=== PATIENT | female | born 1990 | race Asian ===

== ENCOUNTER 2021-09-20 18:30 | Emergency (ER) | payer OTHER, SELFPAY ==
[2021-09-20 18:42] VITALS: BP 129/96; PULSE 84; RESP 16; TEMP 36.8; O2SAT 100
--- NOTE | 2021-09-20 19:00 | ED.BACK ---
HPI - Back Pain/Injury General Chief Complaint: Back Pain/Injury Stated Complaint: lower back pain Time Seen by Provider: 09/20/21 19:00 Source: patient Mode of arrival: ambulatory Limitations: no limitations History of Present Illness HPI Narrative: 31-year-old female presented for complaint of pain across lower back for 3 days. She states she was scrubbing floors at the onset, and then the next evening she twisted while lifting her child onto the bed and noticed pain at that time. She denies numbness, tingling, weakness of the lower extremities, denies any loss of bowel bladder or saddle paresthesia. She has been taking naproxen and ibuprofen as needed. Endorses a history of 3 bulging disks. Related Data Allergies Allergy/AdvReac Type Severity Reaction Status Date / Time doxycycline Allergy Unknown FACIAL Verified 09/20/21 18:45 SWELLING AND SOB Review of Systems Review of Systems: CONSTITUTIONAL: Denies body aches, fever, chills EYES: Denies visual changes ENT: Denies rhinorrhea, congestion CARDIOVASCULAR: Denies chest pain, palpitations, or edema. RESPIRATORY: Denies cough or dyspnea. GASTROINTESTINAL: Denies abdominal pain, nausea, vomiting, or diarrhea. SKIN: Denies rash, itching, or wounds. MUSCULOSKELETAL: Reports back pain NEUROLOGIC: Denies headache, numbness, tingling, or weakness. PSYCH: Denies depression or anxiety. All systems reviewed & are unremarkable except as noted in HPI and below PMFSH Comments At time of signature, I have reviewed and agree with nursing past medical, surgical, social and family history unless otherwise noted. Please see nursing chart for further information. There is no relevant family history pertinent to the presenting complaint Exam Narrative: GENERAL: Well-appearing HEAD: Normocephalic, atraumatic. EYES: conjunctivae clear NECK: Supple. CHEST: Speaks in full sentences. No respiratory distress. HEART: Regular rate and rhythm. Normal and equal peripheral pulses. EXTREMITIES: BLEs have normal strength and sensation, normal range of motion. No vertebral point tenderness. Pt is tender to palpation of bilateral para spinal lumbar area. No open wounds, alignment normal, pulse palpable and equal bilaterally, skin warm, dry, pink. Capillary refill less than 3 seconds. Gait steady. SKIN: Warm, dry, no rash. NEURO: Alert and oriented x3. PSYCH: Normal mood and affect Course Course Emergency Course: Patient is aware of diagnosis, understands and agrees to treatment plan. Anticipatory guidance given. Patient agrees to follow-up as directed and is aware of reasons to seek care at the emergency department. Portions of this record may have been created with voice recognition software Level of Care: Express Care Visit Vital Signs Vital signs: Vital Signs Temperature 98.3 F 09/20/21 18:42 Pulse Rate 84 09/20/21 18:42 Respiratory Rate 16 09/20/21 18:42 Blood Pressure 129/96 H 09/20/21 18:42 Pulse Oximetry 100 09/20/21 18:42 Temperature 98.3 F 09/20/21 18:42 Pulse Rate 84 09/20/21 18:42 Respiratory Rate 16 09/20/21 18:42 Blood Pressure 129/96 H 09/20/21 18:42 Pulse Oximetry 100 09/20/21 18:42 Reviewed MDM - Back Pain/Injury Differential Diagnosis Differential diagnosis: Likely lumbar radiculopathy, strain of lumbar region and discitis Discharge Plan Discharge Clinical Impression: Strain of lumbar region Qualifiers: Encounter type: initial encounter Qualified Code(s): S39.012A - Strain of muscle, fascia and tendon of lower back, initial encounter Patient Disposition: Home, Self-Care Condition: Stable Instructions: Low Back Strain (ED) Additional Instructions: Rest. Avoid pushing, pulling, lifting or anything that worsens the symptoms Tylenol 1000mg every 8 hours as needed Take the steroid as directed Muscle relaxer as needed as directed, can cause drowsiness and do not drive until you know how it makes you feel Al
== END 2021-09-20 19:12 | disposition home or self-care (01) ==
PROVIDERS: Emergency Provider Nurse Practitioner Family
DX: S39.012A Strain of muscle, fascia and tendon of lower back, initial encounter (principal); X50.9XXA Other and unspecified overexertion or strenuous movements or postures, initial encounter
CPT/HCPCS: 99213; G0463

== ENCOUNTER 2022-02-05 14:39 | Emergency (ER) | payer OTHER, SELFPAY ==
--- NOTE | 2022-02-05 14:46 | ED.FEMALEGU ---
HPI - Female Genitourinary General Chief complaint: Urogenital-Female Stated complaint: Vaginal Problems Time Seen by Provider: 02/05/22 14:50 Source: patient, RN notes reviewed and old records reviewed Mode of arrival: ambulatory Limitations: no limitations History of Present Illness HPI Narrative: 32-year-old female presents to the ED with complaints of 4 days of vaginal itching and discharge. States it feels like her normal yeast infection. Spent 3 hours in the swimsuit driving. Denies any concern for STDs. Denies any urinary symptoms. Denies fevers. No abdominal pain. Related Data Home Medications Medication Instructions Recorded Confirmed etonogestrel 68 mg subdermal 1 implant subdermal ONCE 02/05/22 02/05/22 implant (Nexplanon) Allergies Allergy/AdvReac Type Severity Reaction Status Date / Time doxycycline Allergy Unknown FACIAL Verified 02/05/22 14:53 SWELLING AND SOB Review of Systems Review of Systems: All systems reviewed & are unremarkable except as noted in HPI and below Constitutional: Constitutional: Reports no additional constitutional complaints, Denies chills and Denies fatigue Eyes: Eyes: Reports no additional eye complaints ENT: Reports system reviewed and no additional complaints, except as documented Cardiovascular: Cardiovascular: Reports no additional cardiovascular complaints Respiratory: Respiratory: Reports no additional respiratory complaints Gastrointestinal: Gastrointestinal: Reports no additional gastrointestinal complaints, Denies abdominal pain, Denies diarrhea, Denies nausea and Denies vomiting Genitourinary: Genitourinary: Reports as per HPI, Denies hematuria, Denies nocturia, Denies dysuria, Denies flank pain, Denies urinary urgency, Reports vaginal discharge (With itching), Denies vaginal dryness, Denies vaginal odor and Reports vaginal pruritus Musculoskeletal: Musculoskeletal: Reports no additional musculoskeletal complaints and Denies back pain Integumentary/Breasts: Skin/Breast: Reports system reviewed and no additional complaints, except as docu Neurologic: Reports system reviewed and no additional complaints, except as documented Psychiatric: Psychiatric: Reports no additional psychiatric complaints Endocrine: Endocrine: Denies fatigue Allergic/Immunologic: Allergic/Immunologic: Reports no additional allergic/immunologic complaints PMFSH Past Medical History Medical History (Updated 02/05/22 @ 19:47 by Faiza Zeng APRN) Patient denies medical problems Surgical History Surgical History (Updated 02/05/22 @ 19:47 by Faiza A. Topper, [employer]) No pertinent past surgical history Comments At the time of my signature, I reviewed and agree with the nursing past medical, surgical, social, and family history. There is no relevant family history pertinent to the patient complaint. Exam Const: General: healthy appearing, no acute distress, alert and well nourished Nutritional Appearance: well nourished Orientation/consciousness: patient oriented x3 Limitations: no limitations HENMT: Head: normal to inspection Eyes: Conjunctivae: conjunctivae normal Pupils: Equal, round and reactive pupils present Neck: Neck: normal visual inspection, no lymphadenopathy and no meningeal signs Chest: Chest palpation & inspection: normal inspection of the chest and abnormal inspection of the chest Resp: Effort & Inspection: normal respiratory effort Auscultation: clear to auscultation bilaterally Cardio: Rate: regular rate Rhythm: regular rhythm GI: GI Palp: Yes Soft to palpation and No Tenderness to palpation present (GI) : General: Yes no CVA tenderness Other: Patient reports that this feels like a normal yeast infection, history of chronic yeast infections. Has declined exam at this time we will follow-up with primary care provider Back/Spine/Pelvis: Back: no CVA tenderness Skin: General skin exam: normal color Rashes: no rashes Wounds:
[2022-02-05 14:48] VITALS: BP 139/87; PULSE 108; RESP 16; TEMP 37.1; O2SAT 99
== END 2022-02-05 15:01 | disposition home or self-care (01) ==
PROVIDERS: Emergency Provider Nurse Practitioner
DX: B37.31 Acute candidiasis of vulva and vagina (principal)
CPT/HCPCS: 99213; G0463

== ENCOUNTER 2022-10-22 17:56 | Emergency (ER) | payer OTHER, SELFPAY ==
--- NOTE | ~2022-10-22 | XR_ITS ---
EXAM: XR shoulder RT min 2V DATE: 10/22/2022 18:42 HISTORY: PT [facility], PAIN/LIMITED ROM OF RIGHT SHOULDER . COMPARISON: None available. FINDINGS: Normal mineralization. No fracture or dislocation. No lytic or blastic lesion. Joint space s are maintained. No erosion or periosteal change. Soft tissues within normal limits. IMPRESSION: No acute osseous finding in the right shoulder. Reviewed, dictated and finalized at location K.
[2022-10-22 18:23] VITALS: BP 154/83; PULSE 93; RESP 16; TEMP 36.9; O2SAT 100
--- NOTE | 2022-10-22 19:05 | ED.EXTPRO ---
HPI - Extremity Problem General Chief complaint: Extremity Problem,Nontraumatic Stated complaint: Right Arm Pain Time Seen by Provider: 10/22/22 19:05 Source: patient Mode of arrival: ambulatory Limitations: no limitations History of Present Illness HPI Narrative: 32-year-old female presented for complaint of right shoulder pain worsening since yesterday. She reports decreased range of motion at the shoulder due to the pain and the right hand has intermittent tingling. Has taken Tylenol for pain. She denies known injury but states she recently returned to work after several months off, and thinks she over used the shoulder. Related Data Allergies Allergy/AdvReac Type Severity Reaction Status Date / Time doxycycline Allergy Unknown FACIAL Verified 10/22/22 18:37 SWELLING AND SOB Review of Systems Review of Systems: CONSTITUTIONAL: Denies body aches, fever, chills EYES: Denies visual changes ENT: Denies rhinorrhea, congestion CARDIOVASCULAR: Denies chest pain, palpitations, or edema. RESPIRATORY: Denies cough or dyspnea. GASTROINTESTINAL: Denies abdominal pain, nausea, vomiting, or diarrhea. SKIN: Denies rash, itching, or wounds. MUSCULOSKELETAL: Denies neck or back pain Reports right shoulder pain NEUROLOGIC: Denies headache, numbness, tingling, or weakness. All systems reviewed & are unremarkable except as noted in HPI and below PMFSH Past Medical History Medical History Patient denies medical problems Surgical History Surgical History No pertinent past surgical history Comments At time of signature, I have reviewed and agree with nursing past medical, surgical, social and family history unless otherwise noted. Please see nursing chart for further information. There is no relevant family history pertinent to the presenting complaint Exam Narrative: GENERAL: Well-appearing HEAD: Normocephalic, atraumatic. EYES: PERRLA, conjunctivae clear NECK: Supple. No vpt CHEST: Speaks in full sentences. No respiratory distress. HEART: Regular rate and rhythm. Normal and equal peripheral pulses. EXTREMITIES: RUE has normal strength and sensation, limited range of motion at shoulder all directions; endorses pain with movement. No ecchymosis, No point tenderness. No open wounds, or obvious deformity; alignment normal, pulse palpable and equal bilaterally, skin warm, dry, pink. Capillary refill less than 3 seconds. SKIN: Warm, dry, no rash. NEURO: Alert and oriented x3. Course Course Emergency Course: Patient is aware of diagnosis, understands and agrees to treatment plan. Anticipatory guidance given. Patient agrees to follow-up as directed and is aware of reasons to seek care at the emergency department. Portions of this record may have been created with voice recognition software Level of Care: Express Care Visit Vital Signs Vital signs: Vital Signs Temperature 98.5 F 10/22/22 18:23 Pulse Rate 93 10/22/22 18:23 Respiratory Rate 16 10/22/22 18:23 Blood Pressure 154/83 H 10/22/22 18:23 Pulse Oximetry 100 10/22/22 18:23 Oxygen Delivery Room Air 10/22/22 18:23 Temperature 98.5 F 10/22/22 18:23 Pulse Rate 93 10/22/22 18:23 Respiratory Rate 16 10/22/22 18:23 Blood Pressure 154/83 H 10/22/22 18:23 Pulse Oximetry 100 10/22/22 18:23 Oxygen Delivery Room Air 10/22/22 18:23 Reviewed MDM - Extremity (Nontraumatic) MDM Narrative Medical decision making narrative: Results of x-ray reviewed with patient. Discussed physical exam findings. Advised supportive measures and signs/symptoms to go to the ER. Pt is appropriate for outpt treatment and f/u. Differential Diagnosis Differential diagnosis: Likely other (Arthritis, bursitis, tendonitis, rotator cuff injury, fracture, radiculopathy) Imaging Data Radiologist's impression: Patient: Isabella Mendes
== END 2022-10-22 19:20 | disposition home or self-care (01) ==
PROVIDERS: Emergency Provider Nurse Practitioner Family
DX: M25.511 Pain in right shoulder (principal)
CPT/HCPCS: 73030; 99213; G0463

== ENCOUNTER 2022-11-25 13:54 | Emergency (ER) | payer OTHER, SELFPAY ==
[2022-11-25 14:05] VITALS: BP 131/93; PULSE 116; RESP 16; TEMP 35.8; O2SAT 100
--- NOTE | 2022-11-25 14:20 | ED.DENTAL ---
HPI - Dental/Oral General Chief complaint: Dental/Oral Stated complaint: Dental Pain Time Seen by Provider: 11/25/22 14:20 Source: patient Mode of arrival: ambulatory Limitations: no limitations History of Present Illness HPI Narrative: 32 yo F presents with L lower dental infection and pain. States L jaw swollen. Has not seen dentist in 4 yrs. Reports same tooth infected several times. Takes abx and then better. all systems reviewed and negative except as noted above. Related Data Allergies Allergy/AdvReac Type Severity Reaction Status Date / Time doxycycline Allergy Unknown FACIAL Verified 11/25/22 14:10 SWELLING AND SOB Review of Systems Review of Systems: CONSTITUTIONAL: Denies fever, chills, or sweats. EYES: Denies visual changes, redness, or discharge. ENT: Denies rhinorrhea, congestion, sore throat, or otalgia. Reports left lower dental infection and pain. CARDIOVASCULAR: Denies chest pain, palpitations, or edema. RESPIRATORY: Denies cough or dyspnea. GASTROINTESTINAL: Denies abdominal pain, nausea, vomiting, or diarrhea. GENITOURINARY: Denies dysuria or hematuria. SKIN: Denies rash or itching. MUSCULOSKELETAL: Denies back pain, joint pain, or myalgia. NEUROLOGIC: Denies headache, numbness, or weakness. PSYCHIATRIC: Denies anxiety or depression. All other systems reviewed are negative, except as documented in HPI. PMFSH Past Medical History Medical History Patient denies medical problems Surgical History Surgical History No pertinent past surgical history Comments At time of signature, agree with nursing past medical, surgical, social and family history. There is no relevant family history pertinent to the presenting complaint. Exam Narrative: GENERAL: This is a well-nourished, well-developed patient, in no apparent distress. HEAD: normocephalic, atraumatic. EYES: PERRL. Sclera clear/white. Vision is grossly intact. EARS: External ears normal NOSE: External nose normal MOUTH: Tooth #17 decayed, broken with erythematous gums. Several other decayed and broken teeth. NECK: Neck supple, non-tender without lymphadenopathy, masses or thyromegaly. CARDIOVASCULAR: Regular rate and rhythm without murmurs, gallops, or rubs. RESPIRATORY: Clear to auscultation. Breath sounds equal bilaterally. No wheezes, rales, or rhonchi. SKIN: warm, Dry, intact with no suspicious lesions or rash, good texture and turgor. NEURO: awake, alert, and oriented to person, place and time. There were no obvious focal neurologic abnormalities. EXTREMITIES: No joint tenderness, effusion, or edema noted. Course Course Level of Care: Express Care Visit Vital Signs Vital signs: Vital Signs Temperature 35.8 C L 11/25/22 14:05 Pulse Rate 116 H 11/25/22 14:05 Respiratory Rate 16 11/25/22 14:05 Blood Pressure 131/93 H 11/25/22 14:05 Pulse Oximetry 100 11/25/22 14:05 Oxygen Delivery Room Air 11/25/22 14:05 Temperature 35.8 C L 11/25/22 14:05 Pulse Rate 116 H 11/25/22 14:05 Respiratory Rate 16 11/25/22 14:05 Blood Pressure 131/93 H 11/25/22 14:05 Pulse Oximetry 100 11/25/22 14:05 Oxygen Delivery Room Air 11/25/22 14:05 Reviewed MDM - Dental/Oral MDM Narrative Medical decision making narrative: Patient is aware of diagnosis, understands and agrees to treatment plan. Anticipatory guidance given. Patient agrees to follow-up as directed and is aware of reasons to seek care at the emergency department. Portions of this record may have been created with voice recognition software Differential Diagnosis Differential diagnosis: Likely toothache Discharge Plan Discharge Clinical Impression: Pain, dental Patient Disposition: Home, Self-Care Condition: Stable Instructions: Antibiotic Form Additional Instructions: Take antibiotic as prescribe
== END 2022-11-25 14:30 | disposition home or self-care (01) ==
PROVIDERS: Emergency Provider Nurse Practitioner Family
DX: K08.89 Other specified disorders of teeth and supporting structures (principal)
CPT/HCPCS: 99213; G0463

== ENCOUNTER 2023-06-20 17:40 | Emergency (ER) | payer OTHER, SELFPAY ==
[2023-06-20 17:54] VITALS: BP 135/97; PULSE 85; RESP 18; TEMP 36.4; O2SAT 100
--- NOTE | 2023-06-20 18:13 | ED.NAVMDI ---
HPI - Nausea/Vomiting/Diarrhea General Chief complaint: Nausea/Vomiting/Diarrhea Stated complaint: stomach cramps,diarrhea,vomiting Time Seen by Provider: 06/20/23 18:02 Source: patient and RN notes reviewed Mode of arrival: ambulatory Limitations: no limitations History of Present Illness HPI Narrative: Patient presents today complaining of nausea, vomiting, diarrhea, and abdominal pain that started at 2:00 a.m. this morning and has persisted through the day. Reports 3 episodes of vomiting and multiple episodes of diarrhea. Denies blood or mucus in the stool. Denies fever. States she has been able to keep down small amounts of hot tea, but no other fluids or food today. She has tried Pepto-Bismol and Gatorade. States she had [place] food last night and states this may be the cause. No other illnesses within her home. Related Data Allergies Allergy/AdvReac Type Severity Reaction Status Date / Time doxycycline Allergy Unknown FACIAL Verified 11/25/22 14:10 SWELLING AND SOB Review of Systems Review of Systems: CONSTITUTIONAL: Denies body aches, fever, chills, or sweats. EYES: Denies visual changes, redness, or discharge. ENT: Denies rhinorrhea, congestion, sore throat, or otalgia. CARDIOVASCULAR: Denies chest pain, palpitations, or edema. RESPIRATORY: Denies cough or dyspnea. GASTROINTESTINAL: + nausea, vomiting, diarrhea, abdominal cramping GENITOURINARY: Denies dysuria or hematuria. SKIN: Denies rash, itching, or wounds. MUSCULOSKELETAL: Denies back pain, joint pain, or myalgia. NEUROLOGIC: Denies headache, numbness, tingling, or weakness. PSYCH: Denies depression or anxiety. PMFSH Past Medical History Medical History Patient denies medical problems Surgical History Surgical History No pertinent past surgical history Comments At time of signature, I have reviewed and agree with nursing past medical, surgical, social and family history unless otherwise noted. Please see nursing chart for further information. There is no relevant family history pertinent to the presenting complaint Exam Narrative: GENERAL: Well-appearing, well-nourished, and in no acute distress. HEAD: Normocephalic, atraumatic. EYES: EOMI. No redness or drainage. Conjunctivae normal. ENT: Mucous membranes pink and moist. NECK: Normal AROM. Supple. No lymphadenopathy. CHEST: No respiratory distress. Clear to auscultation. HEART: Regular rate and rhythm. No murmur appreciated. Normal peripheral pulses. ABDOMEN: Soft, nontender, nondistended, normal active bowel sounds. MUSCULOSKELETAL: No bony tenderness. EXTREMITIES: Normal range of motion. No edema. SKIN: Warm, dry, no rash. Capillary refill normal. Normal skin turgor. NEURO: No focal deficits. Alert and oriented x3. Gait steady. PSYCH: Normal affect. No signs of depression or anxiety. Course Course Level of Care: Express Care Visit Vital Signs Vital signs: Vital Signs Temperature 97.6 F 06/20/23 17:54 Pulse Rate 85 06/20/23 17:54 Respiratory Rate 18 06/20/23 17:54 Blood Pressure 135/97 H 06/20/23 17:54 Pulse Oximetry 100 06/20/23 17:54 Oxygen Delivery Room Air 06/20/23 17:54 Temperature 97.6 F 06/20/23 17:54 Pulse Rate 85 06/20/23 17:54 Respiratory Rate 18 06/20/23 17:54 Blood Pressure 135/97 H 06/20/23 17:54 Pulse Oximetry 100 06/20/23 17:54 Oxygen Delivery Room Air 06/20/23 17:54 Reviewed MDM - Nausea/Vomiting/Diarrhea MDM Narrative Medical decision making narrative: Patient will be treated with Zofran for her nausea and vomiting. Discussed the diarrhea is likely self-limiting, but talked about red flag signs that she needs to go to the ER for. Requesting work note for today. Anticipatory guidance given. Differential Diagnosis Differential diagnosis: Likely food poisoning, gastroent
== END 2023-06-20 18:22 | disposition home or self-care (01) ==
PROVIDERS: Emergency Provider Nurse Practitioner
DX: R11.2 Nausea with vomiting, unspecified (principal); R19.7 Diarrhea, unspecified
CPT/HCPCS: 99213; G0463

== ENCOUNTER 2024-01-29 12:29 | Emergency (ER) | payer OTHER, SELFPAY ==
--- NOTE | 2024-01-29 12:35 | ED.DENTAL ---
HPI - Dental/Oral General Chief complaint: Dental/Oral Stated complaint: left side tooth pain Time Seen by Provider: 01/29/24 12:47 Source: patient Mode of arrival: ambulatory Limitations: no limitations History of Present Illness HPI Narrative: 34-year-old female presents concern for left lower dental pain. Reports she has had pain and infection in that area for several months. She has been on 2 rounds of penicillin in late December without any relief. She reports she has a dental appointment at the dental school but is not for several months. She denies fever. She denies difficulty swelling. She has been taking Tylenol and ibuprofen around the clock without relief. MD Complaint: tooth pain Related Data Allergies Allergy/AdvReac Type Severity Reaction Status Date / Time doxycycline Allergy Unknown FACIAL Verified 11/25/22 14:10 SWELLING AND SOB Review of Systems Review of Systems: CONSTITUTIONAL: Denies malaise, chills, sweats, or fever. EYES: Denies visual changes ENT: Denies rhinorrhea, congestion, sinus pain, otalgia or sore throat. Reports left lower dental pain CARDIOVASCULAR: Denies chest pain, palpitations RESPIRATORY: Denies cough or dyspnea. SKIN: Denies rash or itching. MUSCULOSKELETAL: Denies myalgia. NEUROLOGIC: Denies numbness, weakness, or headache. All systems reviewed & are unremarkable except as noted in HPI and below PMFSH Past Medical History Medical History Patient denies medical problems Surgical History Surgical History No pertinent past surgical history Comments At time of signature, agree with nursing past medical, surgical, social and family history. There is no relevant family history pertinent to the presenting complaint Exam Narrative: GENERAL: Well-appearing, well-nourished, and in no acute distress. HEAD: Normocephalic, atraumatic. EYES: PERRLA, sclera clear ENT: Nares clear, turbinates pink, no rhinorrhea or epistaxis. Mucous membranes moist. TM pearly fragoso with sharp light reflex bilaterally; no tragal tenderness. Oropharynx without erythema or lesions. Tonsils not enlarged and without exudate. Missing teeth, broken teeth, caries mild left jaw anterior swelling noted NECK: Supple. No lymphadenopathy. CHEST: No respiratory distress. Speaks in full sentences. HEART: Regular rate and rhythm. SKIN: Warm, dry, no visible rash. NEURO: Alert and oriented x3. PSYCH: Normal mood and affect Course Course Emergency Course: Patient is aware of diagnosis, understands and agrees to treatment plan. Anticipatory guidance given. Patient agrees to follow-up as directed and is aware of reasons to seek care at the emergency department. Portions of this record may have been created with voice recognition software Level of Care: Express Care Visit Vital Signs Vital signs: Reviewed. Procedures Nerve Block Nerve Block 1: Nerve block date: 01/29/24 Nerve block time: 13:00 Time out performed: Yes Local Anesthetic: lidocaine 2% Amount of anesthesia used (mL): 3 Side: left Intraoral Nerve Block: inferior alveolar Procedure Successful: Yes Patient Tolerated Procedure: well Complications: none MDM - Dental/Oral MDM Narrative Medical decision making narrative: I evaluated this in the express care. History is obtained from patient who is an independent historian and physical exam was performed.? Available medical records were reviewed. ? Exam findings and relevant testing show no acute concerns or changes; patient is non-toxic appearing and is in no distress. Patients pain and complaint coupled with physical findings are consistant with dentalgia. There are no focal signs of space occupying lesions that are compromising to the airway; no dysphagia, odynophagia, dysphonia, or dyspnea. No uv
[2024-01-29 12:46] VITALS: BP 137/81; PULSE 72; RESP 18; TEMP 36.4; O2SAT 100
[2024-01-29] MEDS: LIDOCAINE HCL 2% PF INJ 5 ML VIAL 4 ML INFILTRATE (13:00)
== END 2024-01-29 13:13 | disposition home or self-care (01) ==
PROVIDERS: Emergency Provider Nurse Practitioner
DX: K08.89 Other specified disorders of teeth and supporting structures (principal)
CPT/HCPCS: 64999; 99213; G0463

== ENCOUNTER 2024-07-12 19:34 | Emergency (ER) | payer OTHER, SELFPAY ==
--- NOTE | 2024-07-12 19:38 | ED_ITS ---
HPI - Dental/Oral General Chief complaint: Dental/Oral Stated complaint: left side tooth pain Time Seen by Provider: 07/12/24 19:43 Source: patient, RN notes reviewed and old records reviewed Mode of arrival: ambulatory Limitations: no limitations History of Present Illness HPI Narrative: 34-year-old female presents to the [facility] with complaints of left-sided lower dental pain. Has a history of dental issues. Patient reports that she had an abscess that popped. States that she is ?on a waiting list for multiple dental clinics. Related Data Allergies Allergy/AdvReac Type Severity Reaction Status Date / Time doxycycline Allergy Unknown FACIAL Verified 07/12/24 19:36 SWELLING AND SOB Review of Systems 2 Review of Systems: All systems reviewed & are unremarkable except as noted in HPI and below Constitutional: Constitutional: Reports no additional constitutional complaints ENT: Reports as per HPI and Reports dental pain (Left lower) Cardiovascular: Cardiovascular: Reports no additional cardiovascular complaints, Denies chest pain and Denies dyspnea Respiratory: Respiratory: Reports no additional respiratory complaints, Denies chest congestion, Denies cough and Denies dyspnea Musculoskeletal: Musculoskeletal: Reports no additional musculoskeletal complaints Integumentary/Breasts: Skin/Breast: Reports system reviewed and no additional complaints, except as docu PMFSH Past Medical History Medical History Patient denies medical problems Surgical History Surgical History No pertinent past surgical history Comments At the time of my signature, I reviewed and agree with the nursing past medical, surgical, social, and family history. There is no relevant family history pertinent to the patient complaint. Exam 2 Const: General: cooperative, healthy appearing, comfortable, no acute distress, well developed, alert and well nourished Nutritional Appearance: w ell nourished Orientation/consciousness: patient oriented x3 Limitations: no limitations HENMT: Head: normal to inspection Ears: hearing grossly normal bilaterally, external ears normal, TM's normal bilaterally, EAC's normal, mastoids normal and no periauricular adenopathy Mouth: Yes Normal oral and palatal mucosa present, Yes lip normal, Yes tongue normal and Yes moist mucous membranes T eeth and gingiva: gingiva normal, caries and poor dentition Teeth image: 1. Decayed tooth below gum 1 with surrounding erythema, swelling 2. 18, 19 with multiple caries 3. 20,21 decayed below gumline, surround ing erythema and swelling Eyes: General: appearance normal, both eyes and all related structures A lignment and Position: alignment normal Neck: Neck: normal visual inspection, full ROM, no lymphadenopathy and no meningeal signs Chest: Chest palpation & inspection: normal inspection of the chest Resp: Effort & Inspection: normal respiratory effort and able to speak in complete sentences Auscultation: clear to auscultation bilaterally, no crackles, no rales, no rhonchi and no wheezes Cardio: Rate: regular rate Skin: General skin exam: normal color and no rashes or lesions noted Neuro: General: patient oriented x3, gait normal, moves all extremities and no meningeal signs Cognition (Neuro): normal cognition Speech: normal speech Gait exam (Neuro): Normal gait present Extrem: General: normal to inspection, full ROM, capillary refill normal and normal gait Psych: Appearance: grossly normal and well kempt Mental Status: mental status grossly normal Speech and movement: Normal speech and movement present and Clear speech present Affect: normal affect Attitude: cooperative Course Course Level of Care: Express Care Visit Vital Signs Vital signs: Vital Signs Temperature 98.4 F 07/12/24 19:41 Pulse Rate 87 07/12/24 19:41 Respiratory Rate 16 07/12/24 19:41 Blood Pressure 130/74 07/12/24 19:41 Pulse Oximetry 99 07/12/24 19:41 Oxygen Delivery Room Air 07/12/24 19:41 Temperature 98.4 F 07/12/24 19:41 Pulse Rate 87 07/12/24 19:41 Respiratory Rate 16 07/12/24 19:41 Blood Pressure 130/74 07/12/24 19:41 Pulse Oximetry 99 07/12/24 19:41 Oxygen Delivery Room Air 07/12/24 19:41 Reviewed MDM - Dental/Oral MDM Narrative Medical decision making narrative: Patient presents with dental issues. History of multiple dental issues. Patient sitting in exam room. Nontoxic, vitals stable. Concerns for abscess versus dental infection to the left lower jaw area. Discussed risks of left untreated and not seen by a dental provider. Patient is appropriate for outpatient treatment and follow-up Discharge instructions reviewed with patient, as well as provided in writing per nursing staff. The instructions also include specific and strict return/GO TO THE ER as well as f/u information. All questions have been answered, and the patient deny any further questions with discharge and discharge plan. Some parts of this dictation were generated by voice recognition software and may contain typographical and/or grammatical inaccuracies. Differential Diagnosis Differential diagnosis: Likely gingival abscess, dental caries, toothache and dental abscess Critical Care Time Critical Care Time Critical Care Time: No Discharge Plan Discharge Clinical Impression: Dental caries, Dental abscess Patient Disposition: Home, Self-Care Condition: Stable Instructions: Antibiotic Form, Dental Abscess (ED) Additional Instructions: Finish the entire course of antibiotics & use the mouthwash. After every time you eat be sure to use salt water rinses. Apply ice to face to help with pain. Take Tylenol alternating with Motrin as needed for pain. You can alternate every 4 hours You need to follow-up with a dental provider as soon as possible for further evaluation and treatment. A list of dental providers has been given to you Follow up with a Primary Care Provider (PCP) about medical needs. A PCP can help keep you healthy by preventive medicine and screening. Go to the ER for New or worsening symptoms. Patient Language: Mosotho Prescriptions: New clindamycin HCl 300 mg capsule 300 mg PO TID 7 Days Qty: 21 0RF Rx Instructions: TAKE WITH 150 MG Follow-up/Referrals: PHYSICIAN,EVENTS SPECIALIST [Primary Care Provider] - Stand Alone Forms: Work/School Release IP Time of Disposition: 19:49
[2024-07-12 19:41] VITALS: BP 130/74; PULSE 87; RESP 16; TEMP 36.9; O2SAT 99
== END 2024-07-12 19:54 | disposition home or self-care (01) ==
PROVIDERS: Emergency Provider Nurse Practitioner
DX: K02.9 Dental caries, unspecified (principal); K04.7 Periapical abscess without sinus
CPT/HCPCS: 99213; G0463

== ENCOUNTER 2024-08-20 10:20 | Emergency (ER) | payer OTHER, SELFPAY ==
[2024-08-20 10:27] VITALS: BP 124/89; PULSE 71; RESP 19; TEMP 36.5; O2SAT 100
--- NOTE | 2024-08-20 11:19 | ED_ITS ---
HPI - Back Pain/Injury General Chief Complaint: Back Pain/Injury Stated Complaint: Back Pain Time Seen by Provider: 08/20/24 11:19 Source: patient, RN notes reviewed and old records reviewed Mode of arrival: ambulatory Limitations: no limitations History of Present Illness HPI Narrative: 34-year-old female presents to the [facility] with lower back pain. Patient reports that she was mopping, twisting motion when she felt a pop and pain to the generalized lower back. Denies any fall. Denies any trauma. No loss retention of bowel or bladder. No saddle anesthesia. Is walking with a steady gait. No treatment prior to arrival Related Data Allergies Allergy/AdvReac Type Severity Reaction Status Date / Time doxycycline Allergy Unknown FACIAL Verified 08/20/24 10:29 SWELLING AND SOB Review of Systems 2 Review of Systems: All systems reviewed & are unremarkable except as noted in HPI and below Constitutional: Constitutional: Reports no additional constitutional complaints ENT: Reports system reviewed and no additional complaints, except as documented Cardiovascular: Cardiovascular: Reports no additional cardiovascular complaints, Denies chest pain and Denies dyspnea Respiratory: Respiratory: Reports no additional respiratory complaints, Denies chest congestion, Denies cough and Denies dyspnea Musculoskeletal: Musculoskeletal: Reports as per HPI and Reports back pain (Lumbar) Integumentary/Breasts: Skin/Breast: Reports system reviewed and no additional complaints, except as docu PMFSH Past Medical History Medical History Patient denies medical problems Surgical History Surgical History No pertinent past surgical history Comments At the time of my signature, I reviewed and agree with the nursing past medical, surgical, social, and family history. There is no relevant family history pertinent to the patient complaint. Exam 2 Const: General: cooperative, healthy appearing, comfortable, no acute distress, well developed, alert and well nourished Nutritional Appearance: w ell nourished Orientation/consciousness: patient oriented x3 Limitations: no limitations HENMT: Head: normal to inspection Eyes: General: appearance normal, both eyes and all related structures A lignment and Position: alignment normal Neck: Neck: normal visual inspection, full ROM, no lymphadenopathy and no meningeal signs Chest: Chest palpation & inspection: normal inspection of the chest Resp: Effort & Inspection: normal respiratory effort and able to speak in complete sentences Cardio: Rate: regular rate GI: GI Palp: No abdominal tenderness Back/Spine/Pelvis: Back/spine/pelvis image: 1. Reports discomfort with changing of position, twisting. No erythema, ecchymosis. No rashes. No swelling noted Generalized discomfort with palpation Skin: General skin exam: normal color and no rashes or lesions noted Neuro: General: patient oriented x3, gait normal, moves all extremities and no meningeal signs Cognition (Neuro): normal cognition Speech: normal speech Gait exam (Neuro): Normal gait present Extrem: General: normal to inspection, full ROM, capillary refill normal and normal gait Psych: Appearance: grossly normal and well kempt Mental Status: mental status grossly normal Speech and movement: Normal speech and movement present and Clear speech present Affect: normal affect Attitude: cooperative Course Course Level of Care: Express Care Visit Vital Signs Vital signs: Vital Signs Temperature 97.7 F 08/20/24 10:27 Pulse Rate 71 08/20/24 10:27 Respiratory Rate 19 08/20/24 10:27 Blood Pressure 124/89 08/20/24 10:27 Pulse Oximetry 100 08/20/24 10:27 Oxygen Delivery Room Air 08/20/24 10:27 Temperature 97.7 F 08/20/24 10:27 Pulse Rate 71 08/20/24 10:27 Respiratory Rate 19 08/20/24 10:27 Blood Pressure 124/89 08/20/24 10:27 Pulse Oximetry 100 08/20/24 10:27 Oxygen Delivery Room Air 08/20/24 10:27 Reviewed MDM - Back Pain/Injury MDM Narrative Medical decision making narrative: Patient sitting comfortably in exam room. Nontoxic, vitals stable. Patient in no acute distress. Patient presents with lower lumbar discomfort after twisting injury. Patient generalized tenderness lower lumbar. Discussed doing an x-ray, limitations of x-rays with lumbar, signs and symptoms mostly muscular. Patient is declining the x-ray at this time, will prescribe anti-inflammatories, muscle relaxer and strict signs and symptoms to proceed to the emergency room which patient verbalized understanding Discharge instructions reviewed with patient, as well as provided in writing per nursing staff. The instructions also include specific and strict return/GO TO THE ER as well as f/u information. All questions have been answered, and the patient deny any further questions with discharge and discharge plan. Some parts of this dictation were generated by voice recognition software and may contain typographical and/or grammatical inaccuracies. Differential Diagnosis Differential diagnosis: Likely lumbar radiculopathy, sciatica and strain of lumbar region Critical Care Time Critical Care Time Critical Care Time: No Discharge Plan Discharge Clinical Impression: Strain of lumbar region Patient Disposition: Home Condition: Stable Instructions: Low Back Strain (ED), Acute Low Back Pain (ED), Lower Back Exercises (ED) Additional Instructions: Take ibuprofen as directed to decrease inflammation and to help pain. Take Baclofen (muscle relaxer) as directed. Do not drink, drive, operate machinery, or do anything dangerous while taking this medication Exercise:Combine aerobic exercise, like walking or swimming, with specific exercises to keep the muscles in your back and abdomen strong and flexible. Proper Lifting:Be sure to lift heavy items with your legs, not your back. Do not bend over to pick something up. Keep your back straight and bend at your knees. Weight:Maintain a healthy weight. Being overweight puts added stress on your lower back. Avoid Smoking:Both the smoke and the nicotine cause your spine to age faster than normal. Proper Posture:Good posture is important for avoiding future problems. A therapist can teach you how to safely stand, sit, and lift. Use warm moist heat to help with pain. Using topical such as Biofreeze, Steffen-Mendes or Aspercreme can also help Follow up with Primary provider in 2-3 days, This may become a chronic condition and they will be the one to help manage your pain and order additional testing. Go to the nearest ER if you develop problems with bladder/bowel function, weakness or loss of feeling in one or both of your legs. Patient Language: Surinamese Prescriptions: New baclofen 10 mg tablet 10 mg PO TID PRN (Reason: muscle pain) Qty: 10 0RF ibuprofen 600 mg tablet 600 mg PO TID PRN (Reason: fever or pain) Qty: 30 0RF Follow-up/Referrals: Cathleen Wang DO [Physician] - 1 Week PHYSICIAN,DERMATOLOGICAL SURGEON [Primary Care Provider] - Stand Alone Forms: Work/School Release IP Time of Disposition: 11:25
== END 2024-08-20 11:30 | disposition home or self-care (01) ==
PROVIDERS: Emergency Provider Nurse Practitioner
DX: S39.012A Strain of muscle, fascia and tendon of lower back, initial encounter (principal); X50.0XXA Overexertion from strenuous movement or load, initial encounter
CPT/HCPCS: 99213; G0463

== ENCOUNTER 2024-11-02 14:41 | Emergency (ER) | payer OTHER, SELFPAY ==
--- NOTE | 2024-11-02 14:42 | ED_ITS ---
HPI - Dental/Oral General Chief complaint: Dental/Oral Stated complaint: Dental Pain Time Seen by Provider: 11/02/24 14:42 Source: patient Mode of arrival: ambulatory Limitations: no limitations History of Present Illness HPI Narrative: Nichol is a 34-year-old female patient presenting to the clinic today with complaints of left lower dental pain/swelling. She reports this has been going on for approximately 2 weeks. Had been seen over 2 months ago and prescribe some antibiotics for a dental infection. States that she is unsure if her symptoms really improved after taking the antibiotics. Has not yet followed up with a dentist. Is requesting a work note. Related Data Allergies Allergy/AdvReac Type Severity Reaction Status Date / Time doxycycline Allergy Unknown FACIAL Verified 11/02/24 14:42 SWELLING AND SOB Review of Systems Review of Systems: Pertinent positives per HPI. Patient denies any fever, chills, rash, headache, visual changes, dizziness, cough, runny nose, sore throat, shortness of breath, chest pain, palpitations, nausea, vomiting, diarrhea, constipation, abdominal pain, or any urinary issues. PMFSH Past Medical History Medical History Patient denies medical problems Surgical History Surgical History No pertinent past surgical history Comments At the time of my signature, I reviewed and agree with the nursing past medical, surgical, social, and family history. There is no relevant family history pertinent to the patient complaint. Exam 2 Narrative: General: Well-developed, well nourished, in no apparent distress Head: Normocephalic, atraumatic Eyes: Pupils equally round and reactive to light bilaterally, EOM intact, sclera and conjunctive clear, no discharge, lids normal Ears: TMs intact and clear, ear canals clear, no drainage, grossly hearing normal. Nose: Nares patent, no discharge, no inflammation, no sinus tenderness. Mouth: Oropharynx without lesions or masses, poor dentition, MMM. Multiple broken teeth, dental pain number 1 with localized gingival swelling Neck: Supple, trachea midline, no enlargement of anterior or posterior cervical nodes, no thyroid masses or goiter palpable. Cardio: Regular rate and rhythm, s1 and s2 normal, no murmur appreciated. Resp: Clear to auscultation bilaterally anteriorly and posteriorly, no rhonchi, rales, wheezing or rubs Course Course Emergency Course: Portions of this record may have been created with voice recognition software. Level of Care: Express Care Visit Vital Signs Vital signs: Vital Signs Temperature 36.6 C 11/02/24 14:48 Pulse Rate 83 11/02/24 14:48 Respiratory Rate 20 11/02/24 14:48 Blood Pressure 149/89 H 11/02/24 14:48 Pulse Oximetry 98 11/02/24 14:48 Oxygen Delivery Room Air 11/02/24 14:48 Temperature 36.6 C 11/02/24 14:48 Pulse Rate 83 11/02/24 14:48 Respiratory Rate 20 11/02/24 14:48 Blood Pressure 149/89 H 11/02/24 14:48 Pulse Oximetry 98 11/02/24 14:48 Oxygen Delivery Room Air 11/02/24 14:48 Vital signs reviewed MDM - Dental/Oral MDM Narrative Medical decision making narrative: At the time of visit patient is resting comfortably on the exam table. Patient appears to be nontoxic. Plan: I suspect patient has a dental infection. Prescription for Augmentin was sent to the pharmacy and a dental list was given to the patient. Work note was also given to the patient. Supportive measures were discussed with the patient and they voiced understanding discharge instructions and agrees to treatment plan. Return precautions reviewed Differential Diagnosis Differential diagnosis: Likely gingival abscess, dental caries, toothache, dental abscess, fracture of tooth and aphthous ulcer Discharge Plan Discharge Clinical Impression: Dental infection Patient Disposition: Home Condition: Stable Instructions: Antibiotic Form, Dental Abscess (ED) Additional Instructions: Take medications as prescribed-amoxicillin Increase fluids and stay well hydrated May take Tylenol/Motrin as needed for pain or fever May apply Orajel to the affected area to help alleviate pain May apply warm or cool compress to the affected area to help alleviate pain Follow-up with your dentist as soon as possible Patient Language: Paraguayan Prescriptions: New amoxicillin-pot clavulanate 875-125 mg tablet 1 tablet PO Q12H 10 Days Qty: 20 0RF Follow-up/Referrals: UNKNOWN,DOCTOR [Non-Staff] - Stand Alone Forms: Work/School Release IP Time of Disposition: 14:51 Quality NIHSS Nursing Documentation ED NIHSS nursing documentation: reviewed/agree
[2024-11-02 14:48] VITALS: BP 149/89; PULSE 83; RESP 20; TEMP 36.6; O2SAT 98
== END 2024-11-02 14:55 | disposition home or self-care (01) ==
PROVIDERS: Emergency Provider Nurse Practitioner Family
DX: K04.7 Periapical abscess without sinus (principal)
CPT/HCPCS: 99213; G0463

== ENCOUNTER 2024-11-11 15:02 | Emergency (ER) | payer OTHER, SELFPAY ==
[2024-11-11 15:11] VITALS: BP 151/95; PULSE 97; RESP 20; TEMP 36.9; O2SAT 98
--- NOTE | 2024-11-11 16:26 | ED.FEMALEGU ---
HPI - Female Genitourinary General Chief complaint: Urogenital-Female Stated complaint: Dental/Vaginal Pain Time Seen by Provider: 11/11/24 15:29 Source: patient and RN notes reviewed Mode of arrival: ambulatory Limitations: no limitations History of Present Illness HPI Narrative: Patient presents today stating she believes she has a vaginal yeast infection. She was seen here initially on 11/02/2024 and diagnosed with a dental infection. She was subsequently prescribed Augmentin and finished her prescription yesterday. She has some vaginal irritation, itching, and mild white discharge. She has tried some atte-[id number] Monistat without improvement. States that she still has some swelling of the gumline and believes the antibiotic did not help with her symptoms. She is still trying to get into her dentist and needs to call back tomorrow during their office hours. Related Data Allergies Allergy/AdvReac Type Severity Reaction Status Date / Time doxycycline Allergy Unknown FACIAL Verified 11/11/24 15:09 SWELLING AND SOB PMFSH Past Medical History Medical History Patient denies medical problems Surgical History Surgical History No pertinent past surgical history Comments At time of signature, I have reviewed and agree with nursing past medical, surgical, social and family history unless otherwise noted. Please see nursing chart for further information. There is no relevant family history pertinent to the presenting complaint Exam Narrative: GENERAL: Well-appearing, well-nourished, and in no acute distress. HEAD: Normocephalic, atraumatic. EYES: EOMI. No redness or drainage. Conjunctivae normal. ENT: Mucous membranes pink and moist. Left lower gumline tenderness and mild edema. No facial swelling noted. NECK: Normal AROM. CHEST: No respiratory distress. : exam deferred. EXTREMITIES: Normal range of motion. No edema. SKIN: Warm, dry, no rash. Capillary refill normal. Normal skin turgor. NEURO: No focal deficits. Alert and oriented x3. Gait steady. PSYCH: Normal affect. No signs of depression or anxiety. Course Course Level of Care: Express Care Visit Vital Signs Vital signs: Vital Signs Temperature 98.4 F 11/11/24 15:11 Pulse Rate 97 07/09/25 15:11 Respiratory Rate 20 11/11/24 15:11 Blood Pressure 151/95 H 11/11/24 15:11 Pulse Oximetry 98 11/11/24 15:11 Oxygen Delivery Room Air 11/11/24 15:11 Temperature 98.4 F 11/11/24 15:11 Pulse Rate 97 11/11/24 15:11 Respiratory Rate 20 11/11/24 15:11 Blood Pressure 151/95 H 11/11/24 15:11 Pulse Oximetry 98 11/11/24 15:11 Oxygen Delivery Room Air 11/11/24 15:11 Reviewed MDM - Female Genitourinary MDM Narrative Medical decision making narrative: 34-year-old female patient presents vaginal itching and discharge after taking Augmentin as well as some persistent left lower gumline swelling. Prescription for fluconazole and chlorhexidine mouthwash sent to pharmacy. She will continue to try to get an appointment with her dentist for further evaluation of her oral symptoms. Vital signs stable. Anticipatory guidance given. Differential Diagnosis Differential diagnosis: Likely vaginitis and other (Gingivitis, and dental abscess) Critical Care Time Critical Care Time Critical Care Time: No Discharge Plan Discharge Clinical Impression: Vaginal yeast infection, Gingivitis Patient Disposition: Home Condition: Stable Instructions: Yeast Infection (ED) Additional Instructions: Please take the fluconazole as prescribed and use the mouthwash as directed. Follow-up with a dentist as soon as possible. Continue an anti-inflammatory for your dental pain. Your blood pressure was elevated above 120/80 today at Urgent Care. This puts you above the threshold for follow up. Please schedule a followup visit with your personal physician as soon as possible, for further evaluation and treatment. Even blood pressure exceeding 120/80 may indicate pre-hypertension. Patient Language: Telugu Prescriptions: New fluconazole 150 mg tablet 150 mg PO Q3D Qty: 2 0RF chlorhexidine gluconate 0.12 % mouthwash 15 ml buccal DAILY Qty: 120 0RF No Action amoxicillin-pot clavulanate 875-125 mg tablet 1 tablet PO Q12H 10 Days Qty: 20 0RF Follow-up/Referrals: PHYSICIAN,BALE SEWER [Primary Care Provider] - Time of Disposition: 15:36
== END 2024-11-11 15:40 | disposition home or self-care (01) ==
PROVIDERS: Emergency Provider Nurse Practitioner
DX: B37.31 Acute candidiasis of vulva and vagina (principal); K05.10 Chronic gingivitis, plaque induced
CPT/HCPCS: 99213; G0463

== ENCOUNTER 2025-03-25 11:57 | Emergency (ER) | payer OTHER, SELFPAY ==
[2025-03-25 12:06] VITALS: BP 134/85; PULSE 76; RESP 18; TEMP 36.6; O2SAT 99
[2025-03-25 12:15] LABS: EDSTREPNEGPOS1 Negative (Negative)
--- NOTE | 2025-03-25 12:48 | ED_ITS ---
HPI - URI/Sore Throat General Chief Complaint: Upper Respiratory Infection Stated Complaint: sore throat/neck pain Time Seen by Provider: 03/25/25 12:40 Source: patient and RN notes reviewed Mode of arrival: ambulatory Limitations: no limitations History of Present Illness HPI Narrative: 35-year-old female presents to the [facility] complaining of upper respiratory symptoms for started approximately 10 to 11 hours ago. Patient reports feeling a lot of postnasal drainage followed by sore throat. Patient also reports neck stiffness on tender lymph nodes. Patient has any fevers, eczema chills no nausea vomiting, diarrhea, chest pain, difficulty breathing, difficulty clearing secretions, dysphagia, any other symptoms. She says her vaccinations are up-to-date. Patient has not been trying anything to help with symptoms. Related Data Allergies Allergy/AdvReac Type Severity Reaction Status Date / Time doxycycline Allergy Unknown FACIAL Verified 03/25/25 12:13 SWELLING AND SOB Review of Systems Review of Systems: CONSTITUTIONAL: Denies fever, chills, or sweats. EYES: Denies visual changes, redness, or discharge. ENT: Denies rhinorrhea, congestion, dysphasia, difficulty clearing secretions, or otalgia. Positive for sore throat. CARDIOVASCULAR: Denies chest pain, palpitations, or edema. RESPIRATORY: Denies cough or dyspnea. GASTROINTESTINAL: Denies abdominal pain, nausea, vomiting, or diarrhea. GENITOURINARY: Denies dysuria or hematuria. SKIN: Denies rash or itching. MUSCULOSKELETAL: Denies back pain, joint pain, or myalgia. Positive for neck pain and stiffness. NEUROLOGIC: Denies headache, numbness, or weakness. PSYCHIATRIC: Denies anxiety or depression. All other systems reviewed are negative, except as documented in HPI. PMFSH Past Medical History Medical History Patient denies medical problems Surgical History Surgical History No pertinent past surgical history Comments At the time of my signature, I reviewed and agree with the nursing past medical, surgical, social, and family history. There is no relevant family history pertinent to the patient complaint. Exam Narrative: GENERAL: This is a well-nourished, well-developed adult, in no apparent distress. They are non ill-appearing, nontoxic appearing. HEAD: normocephalic, atraumatic. EYES: Sclera clear/white. Conjunctiva normal. Vision is grossly intact. Extraocular movements intact EARS: External ears normal, auditory canals clear and without drainage, TMs normal without perforation. Hearing grossly intact. NOSE: External nose normal with no obvious nasal discharge, nasal turbinates without redness or swelling, no rhinorrhea. THROAT: Mucous membranes moist, posterior pharynx erythematous red and patchy, no exudate. Uvula midline. NECK: Neck supple, tender cervical lymphadenopathy, left lymph nodes are more swollen than the right, no masses or thyromegaly. Normal range of motion. Negative Brudzinski sign. CARDIOVASCULAR: Regular rate and rhythm without murmurs, gallops, or rubs. RESPIRATORY: Clear to auscultation. Breath sounds equal bilaterally. No wheezes, rales, or rhonchi. SKIN: warm, Dry, intact with no suspicious lesions or rash, good texture and turgor. NEURO: awake, alert, and oriented to person, place and time. There were no obvious focal neurologic abnormalities. EXTREMITIES: No joint tenderness, effusion, or edema noted. BACK: Nontender without deformity. No CVA tenderness. Course Course Emergency Course: Portions of this record may have been created with voice recognition software Level of Care: Express Care Visit Vital Signs Vital signs: Vital Signs Temperature 97.9 F 03/25/25 12:06 Pulse Rate 76 03/25/25 12:06 Respiratory Rate 18 03/25/25 12:06 Blood Pressure 134/85 03/25/25 12:06 Pulse Oximetry 99 03/25/25 12:06 Oxygen Delivery Room Air 03/25/25 12:06 Temperature 97.9 F 03/25/25 12:06 Pulse Rate 76 03/25/25 12:06 Respiratory Rate 18 03/25/25 12:06 Blood Pressure 134/85 03/25/25 12:06 Pulse Oximetry 99 03/25/25 12:06 Oxygen Delivery Room Air 03/25/25 12:06 Reviewed MDM - URI/Sore Throat MDM Narrative Medical decision making narrative: Neck is supple, negative Brudzinski sign, vaccinations up to date. Patient nontoxic appearing, no apparent distress. Rapid strep is negative. Throat culture is pending. There is some clinical suspicion for strep throat. Through shared decision making patient discussed present to be treated for strep throat with antibiotics are awaiting culture results. Patient like to wait culture results. Will Give her a 1 Time dose of dexamethasone to with the sore throat swelling. Discussed supportive care. Discussed physical exam findings. Advised supportive measures and signs/symptoms to go to the ER. Pt is appropriate for outpt treatment and f/u. Differential Diagnosis Differential diagnosis: Likely upper respiratory infection, sinusitis, viral infection and pharyngitis Lab Data Attestation: I reviewed the patient's lab results. Labs: Lab Results 03/25/25 Range/Units 12:13 POC Grp A Strep Screen Negative (Negative) Critical Care Time Critical Care Time Critical Care Time: No Discharge Plan Discharge Clinical Impression: Pharyngitis Qualifiers: Pharyngitis/tonsillitis etiology: unspecified etiology Qualified Code(s): J02.9 - Acute pharyngitis, unspecified Patient Disposition: Home Condition: Stable Instructions: Strep Throat (ED) Additional Instructions: Your rapid strep swab was negative today at [facility]. You will be notified in a few days if the culture comes back positive for strep, and appropriate antibiotics will be called in for you at that time. Your symptoms are likely due to a viral illness, which is not treated with antibiotics. Viral symptoms can be present for up to 7-10 days. Take Tylenol or Motrin as needed for fever or pain. Follow instructions on the bottle. Rest and stay hydrated. Take that dexamethasone as directed. Salt water gargle rinses and spit as needed for sore throat. Warm peppermint tea is soothing for sore throat. May use throat lozenges as needed for sore throat, follow instructions on the packaging. Follow up with your PCP in 3-by days if symptoms are not improving. Go to the ER immediately if you develop uncontrollable fevers, chest pains, vomiting, severe weakness, difficulty breathing or swallowing, or any serious concerns. Patient Language: Yakut Prescriptions: New dexamethasone 6 mg tablet 6 mg PO ONCE 1 Days Qty: 1 0RF Follow-up/Referrals: PHYSICIAN,PRODUCTION RECOVERY OPERATOR [Primary Care Provider, Internal Medicine] Stand Alone Forms: Work/School Release IP Time of Disposition: 12:47
== END 2025-03-25 12:52 | disposition home or self-care (01) ==
DX: J02.9 Acute pharyngitis, unspecified (principal)
CPT/HCPCS: 87081; 87880; 99213; G0463